=== PATIENT | male | born 1960 | race Caucasian/White ===

== ENCOUNTER 2022-05-05 10:48 | Day surgery (SDC) | payer OTHER ==
[~2022-05-05] VITALS: Ht 172.7 cm; Wt 75.7 kg
[~2022-05-05 10:48] MED LIST: ALL DAY ALLERGY10 M3 PO; ANTI-ITCH28 G2 TOP; CAPZASIN QUIC42.5 GM TOP; CYMBALTA30 MG PO; DIFLUNISAL500 MG PO; GABAPENTIN600 MG PO; LIPITOR20 MG PO; NABUMETONE500 MG PO; NASACORT10.8 ML NAS; NORCO 10-325 T1 EACH PO; REMERON30 MG PO; SALINE NASAL SP88 ML NAS; SIMVASTATIN20 MG PO; ULTRAM50 MG PO; UREA TOP; VITAMIN D22000 UNIT PO
--- NOTE | 2022-05-05 14:11 | NUR ---
05/05/22 1411 Jaimie Juan 1408 PATIENT ARRIVES TO PACU AWAKE BUT DROWSY. RESP EVEN AND UNLABORED, NC AT 2 LITERS, TURNED OFF ON ARRIVAL TO PACU.
--- NOTE | 2022-05-07 09:27 | PATH ---
[facility] [address], [place] [address] Signed SPECIMEN(S): A DESCENDING/LEFT COLON POLYP SPECIMEN SOURCE: A. DESCENDING/LEFT COLON POLYP CLINICAL HISTORY: Colonoscopy. History of polyps, family history of colon CA. Postop: Polyp x 1. FINAL PATHOLOGIC DIAGNOSIS: Colon, descending/left, polypectomy: - Tubular adenoma. - There is no evidence of high-grade dysplasia or malignancy. TWK:caw:C2NR MICROSCOPIC EXAMINATION: Histologic sections of all submitted blocks are examined by light microscopy. These findings, together with the gross examination, support the pathologic diagnosis. GROSS DESCRIPTION: The specimen, labeled "RL, descending colon polyp," is received in formalin and consists of one steward soft tissue fragment that measures 0.1 cm in greatest dimension. The specimen is entirely submitted in cassette (A1). JS (under the direct supervision of a pathologist) The Gross Description was prepared using a voice recognition system. The report was reviewed for accuracy; however, sound-alike word errors, addition and/or deletions may occur. If there is any question about this report, please contact Client Services. PERFORMING LABORATORY: The technical component was performed by [facility], [address] [place] [id number] (CLIA# [id number]). The professional interpretation was performed by [facility], [facility], [address] [place] [address] (CLIA#: [id number]). Diagnostician: Josue Umana MD Pathologist Electronically Signed 05/07/2022 PATIENT NAME: VERA SMALL PATHOLOGY DATE OF : 64 REPORT #: [id number] PHYSICIAN: KIM HARPER PCP: STELLA PIMENTEL REPORT IS CONFIDENTIAL AND NOT TO BE RELEASED WITHOUT AUTHORIZATION [address] [address] Signed Copies: ~ PATIENT NAME: VERA SMALL PATHOLOGY DATE OF : 64 REPORT #: [id number] PHYSICIAN: KIM PATHOLOGY PCP: STELLA PIMENTEL REPORT IS CONFIDENTIAL AND NOT TO BE RELEASED WITHOUT AUTHORIZATION
--- NOTE | 2022-05-07 13:04 | OR ---
[facility] [address] [place], [place] [address] Signed DATE OF OPERATION: 05/05/2022 SURGEON: Palmira Moss MD PREOPERATIVE DIAGNOSIS: Surveillance colonoscopy, history of polyps with excision elsewhere. POSTOPERATIVE DIAGNOSIS: Left-sided polyp (excised). PROCEDURE: Total colonoscopy to cecum with cold morcellation polypectomy x1. ANESTHESIA: Intravenous sedation; fentanyl 150 mcg and Versed 6 mg. Preoperative antibiotic Ancef 2 g. INDICATION: This 62-year-old white man is a prisoner at [facility], patient of Stella Pimentel and is asymptomatic. He has had a polypectomy performed elsewhere in the past. He has no family history of colon cancer that he is aware of. Currently, he is symptom free. He has no family history of colon cancer that he is aware of. He is admitted at this time to undergo colonoscopy for surveillance. He understands the risk of bleeding, infection, and perforation. FINDINGS: The prep was excellent. Complete colonoscopy was undertaken to the cecum without question. He had a very well prepped bowel. There was a small linear polyp in the descending colon which was excised with cold morcellation technique. DESCRIPTION OF PROCEDURE: The patient was brought to the endoscopy suite and placed in the lateral decubitus position, given intravenous sedation to the point of slurred speech and nystagmus. Digital rectal examination was normal. An Olympus video colonoscope was passed in the rectum and manipulated throughout the colon ultimately intubating the cecum itself. The ileocecal valve and appendiceal orifice were normal. The scope was withdrawn from that point and examination throughout showed no sign of abnormality until approximately 70 cm from the anal verge and in the left colon where a small linear polyp was noted, this was excised with cold morcellation technique. Scope was further withdrawn and there were no other findings of concern. Retroflexed view was normal and scope was removed. Electronically Signed By: PALMIRA MOSS MD 05/07/22 5840 PATIENT NAME: VERA SMALL OPERATIVE REPORT DATE OF : 64 REPORT #: [id number] PHYSICIAN: PALMIRA MOSS MD PCP: STELLA PIMENTEL REPORT IS CONFIDENTIAL AND NOT TO BE RELEASED WITHOUT AUTHORIZATION [facility] [address] [place], [place] [address] Signed The patient was taken to the recovery room in good condition. CONCLUDING DIAGNOSIS: Polyp of left colon, excised. PLAN: Recommend repeat colonoscopy in 3 to 5 years, sooner if clinically indicated. He will return to the ongoing care of REJI Arevalo at [facility]. MD KESLEY Castellon/ERICK /[id number] cc: REJI Silverio Copies: STELLA PIMENTEL ~ Electronically Signed By: PALMIRA MOSS MD 05/07/22 1304 PATIENT NAME: VERA SMALL OPERATIVE REPORT DATE OF : 64 REPORT #: [id number] PHYSICIAN: PALMIRA MOSS MD PCP: STELLA PIMENTEL REPORT IS CONFIDENTIAL AND NOT TO BE RELEASED WITHOUT AUTHORIZATION
== END 2022-05-05 14:30 | disposition home or self-care (01) ==
LOC: OPS 10:48 → DS 10:48 → OPS 12:00
PROVIDERS: ATTEND Surgery
PROC: 0DBH8ZX Excision of Cecum, Via Natural or Artificial Opening Endoscopic, Diagnostic (ICD-10-PCS; principal; 2022-05-05 12:00)
DX: Z12.11 Encounter for screening for malignant neoplasm of colon (principal); D12.4 Benign neoplasm of descending colon; E78.5 Hyperlipidemia, unspecified; I10 Essential (primary) hypertension; N40.0 Benign prostatic hyperplasia without lower urinary tract symptoms; Z86.010 Personal history of colon polyps; Z86.16 Personal history of COVID-19; Z98.890 Other specified postprocedural states
CPT/HCPCS: 99153; G0500; J0690; J2250; J3010; J7121